=== PATIENT | female | born 1975 | race Caucasian/White ===

== ENCOUNTER 2019-12-05 07:40 | Day surgery (SDC) | payer BC, OTHER ==
[2019-11-30 11:20] LABS: BHCG - Serum Negative (NEGATIVE); Pregs Control Background? CLEAR/WHITE (CLR/WHITE); Pregs Control Bar Appear? YES (CONTROL BAR)
[2019-11-30 11:31] LABS: Hemoglobin 12.9 g/dL (12.0-16.0); Mean Corpuscular Hemoglobin 32.6 pg (27.0-31.0); Mean Corpuscular Volume 95.9 fL (78.0-98.0); Mean Platelet Volume 8.8 fL (7.4-10.4); Platelet Count 284 thou/uL (130-400); RBC Distribution Width 11.3 % (11.5-14.5); Red Blood Cell (RBC) Count 3.96 mill/uL (4.20-5.40); White Blood Cell (WBC) Count 7.3 thou/uL (4.8-10.8)
[2019-11-30 17:33] LABS: SARS-CoV-2 MS2 Positive; SARS-CoV-2 N Gene Negative; SARS-CoV-2 S Gene Negative; SARS-CoV-2 by NAA Not Detected (NotDetected); SARS-CoV-2 orf1ab Negative
[2019-12-04 10:15] VITALS: BMI 27.3
[2019-12-05] MEDS ORDERED: Gabapentin 300 MG CAP ONE (08:21)
[2019-12-05] MEDS ORDERED: Famotidine/PF 20 mg/2ml Vial ONE (08:22)
[2019-12-05] MEDS ORDERED: CeleCOXIB 100 MG CAP ONE (08:22)
[2019-12-05] MEDS ORDERED: Ondansetron PF 4 MG/2 ML Vial ONE ×2 (09:11→12:34)
[2019-12-05] MEDS ORDERED: Bupivacaine HCl 0.5%/Epinephrine 1:200,000/PF 30 ml Vial ONE (09:24)
[2019-12-05] MEDS ORDERED: Fentanyl 250 MCG/5 ML VIAL ONE (09:38)
[2019-12-05] MEDS ORDERED: Fentanyl 100 MCG/2 ML VIAL ONE ×2 (11:47→12:31)
[2019-12-05] MEDS ORDERED: Meperidine HCl/PF 25 MG/ML VIAL ONE (11:56)
[2019-12-05] MEDS ORDERED: Rocuronium Bromide 10 MG/ML (10ML VIAL) ONE (12:34)
[2019-12-05] MEDS ORDERED: PROPOFOL 200 MG/20 ML VIAL ONE (12:34)
[2019-12-05] MEDS ORDERED: HYDROcodone/Acetaminophen 5/325 mg Tablet ONE (13:38)
--- NOTE | 2019-12-05 17:20 | OP ---
DATE OF PROCEDURE: 12/05/2019 PREOPERATIVE DIAGNOSES: 1. Right adnexal mass. 2. Chronic pelvic pain. PROCEDURES PERFORMED: Laparoscopic right salpingo-oophorectomy, lysis of adhesions and fulguration and excision of endometriotic lesions. MAT MACHINE TENDER: Karla Zhong PA-C. COMPLICATIONS: None. ESTIMATED BLOOD LOSS: Less than 10 mL. ANESTHESIA: GETA per Dr. Sal. COMPLICATIONS: None. DESCRIPTION OF PROCEDURE: The patient was taken back to the OR with IV fluids running. When she was in the OR, general anesthesia was obtained, and the patient was placed in low dorsal lithotomy position. The abdomen and vagina were prepped and draped in normal fashion for gynecologic laparoscopy. Sykes catheter was placed using sterile technique, and a sponge stick was placed in the vagina for uterine manipulation if needed during the case. Surgeon's gloves were changed and attention was turned to the laparoscopic portion of the procedure. Local anesthesia was placed underneath the skin at the supraumbilical fold. A 12 mm skin incision was made with a scalpel and a Veress needle was placed through the skin incision and the abdomen was insufflated without difficulty. The Veress needle was then removed and a 12 mm trocar was placed through the distended abdomen. A laparoscope was placed through this trocar. The patient was placed in Trendelenburg position and the above findings were noted. The intraoperative photos were taken of the right adnexal mass that was consistent with an endometrioma and the endometriotic implants noted over the bladder peritoneum in the cul-de-sac and the left pelvic sidewall. The abdomen otherwise was normal appearing. Next, the right and left lower quadrant 8 mm and right upper quadrant 11 mm trocars were placed using similar technique and under direct visualization. The robotic arms were docked to the patient's bedside and the instruments were passed through the ports under direct visualization. Beginning on the patient's right side, the right ureter was identified. The anatomy was inspected closely on the right side with a large right ovarian cyst consistent with an endometrioma and a right hydrosalpinx adhered to the right pelvic sidewall, cul-de-sac, bowel and uterus. At the beginning of the case, lysis of adhesions were performed, freeing the right adnexa from the colon, uterus, and the cul-de-sac. The specimen was freely mobile. The right IP ligament was cauterized and transected. The ovarian ligament on the patient's right side was cauterized and transected. The specimen was then completely transected from the right adnexa and placed into the pelvis. The areas of dissection were copiously irrigated. Any small areas of bleeding were controlled with monopolar and bipolar cautery. After hemostasis was assured, attention was turned to fulgurate and then excision of peritoneal implants with endometriosis. These were fulgurated from the cul-de-sac, excised from the peritoneum anterior to the bladder and to the left pelvic sidewall. Once this portion of the procedure was complete, the pelvis was irrigated and suctioned dry. No areas of bleeding were noted. Tisseel was placed over the areas of endometriosis resection and fulguration as well as the area of dissection at the right side of the pelvis. After the Tisseel was placed, the specimen was placed in an EndoCatch bag with the bag string brought through the supraumbilical port. All instruments were then removed. The specimen bag was brought through the supraumbilical port site without difficulty. The gas was released from the abdomen and the trocars were all removed. The fascia was closed at the supraumbilical port site. All 4 skin incisions were closed with Monocryl suture and dressed with Dermabond dressing. The sponge stick was dried at the end of the case with no vaginal bleeding noted. The patient was cleaned, dried, taken out of lithotomy position and transferred to the recovery room after extubation. The procedure was uncomplicated. The counts were correct. Job ID: [id number]
--- NOTE | 2019-12-06 17:29 | EKG ---
Test Reason : PREOP Blood Pressure : / mmHG Vent. Rate : 065 BPM Atrial Rate : 065 BPM P-R Int : 156 ms QRS Dur : 088 ms QT Int : 414 ms P-R-T Axes : 039 025 -08 degrees QTc Int : 430 ms Normal sinus rhythm Non specific T wave changes No previous ECGs available Confirmed by DR. Becky SOMERS ([id number]) on 12/06/2019 5:28:25 PM Referred By: [facility] Confirmed By:DR. Becky SOMERS
== END 2019-12-05 14:40 | disposition home or self-care (01) ==
LOC: SDC 07:40
PROVIDERS: ATTEND Obstetrics & Gynecology
PROC: 0U5F4ZZ Destruction of Cul-de-sac, Percutaneous Endoscopic Approach (ICD-10-PCS; principal; 2019-12-05)
PROC: 0UT54ZZ Resection of Right Fallopian Tube, Percutaneous Endoscopic Approach (ICD-10-PCS; principal; 2019-12-05)
PROC: 0UT04ZZ Resection of Right Ovary, Percutaneous Endoscopic Approach (ICD-10-PCS; principal; 2019-12-05)
DX: N80.1 Endometriosis of ovary (principal); N83.01 Follicular cyst of right ovary; N83.8 Other noninflammatory disorders of ovary, fallopian tube and broad ligament; N80.3 Endometriosis of pelvic peritoneum; N80.8 Other endometriosis; G89.29 Other chronic pain; R10.2 Pelvic and perineal pain; N73.6 Female pelvic peritoneal adhesions (postinfective); I10 Essential (primary) hypertension; E78.5 Hyperlipidemia, unspecified; G40.909 Epilepsy, unspecified, not intractable, without status epilepticus; F17.200 Nicotine dependence, unspecified, uncomplicated; F41.8 Other specified anxiety disorders; Z79.899 Other long term (current) drug therapy; Z91.013 Allergy to seafood; Z01.812 Encounter for preprocedural laboratory examination; Z20.828 Contact with and (suspected) exposure to other viral communicable diseases
CPT/HCPCS: 36415; 84703; 85027; 86850; 86900; 86901; 87635; 88305; 93005; 93010; J0690; J2175; J2405; J2704; J3010; S0028; U0003